=== PATIENT | male | born 1955 | race Caucasian/White ===

== ENCOUNTER 2016-08-26 09:37 | Day surgery (SDC) | payer OTHER ==
[2016-08-23 16:22] VITALS: BMI 30.1
[~2016-08-26 09:37] MED LIST: LACTATED RINGERS 1,000 ML IV SCH; LIDOCAINE 1% 20 ML VIAL (10MG/ML) FOR IV START INTRADERMA PRN
[2016-08-26 09:56] VITALS: RESP 16; TEMP 98.1
[2016-08-26] MEDS ORDERED: LIDOCAINE 1% 20 ML VIAL (10MG/ML) FOR IV START INTRADERMA ONE (10:02)
[2016-08-26] MEDS ORDERED: fentaNYL (PF) 50 MCG/ML 2 ML AMP ONE (10:48)
[2016-08-26] MEDS ORDERED: PROPOFOL 10 MG/ML 20 ML VIAL IV ONE (10:48)
[2016-08-26] MEDS ORDERED: MIDAZOLAM 2 MG/2 ML VIAL ONE (10:48)
[2016-08-26] MEDS ORDERED: LACTATED RINGERS 1,000 ML IV ONE (11:04)
--- NOTE | 2016-08-26 11:08 | P.PCN ---
Date of Procedure: 08/26/16 Procedure(s) Performed: BRIEF HISTORY: Patient is a 61-year-old pleasant white male scheduled for an elective colonoscopy as a part of evaluation of lower abdominal pain and change in bowel habits for the last 1 month duration. He denies any rectal bleeding. No family history of colon cancer. PROCEDURE PERFORMED: Colonoscopy and polypectomy. PREOPERATIVE DIAGNOSIS: Lower abdominal pain and change in bowel habits snare. IV sedation per Anesthesia. PROCEDURE: After informed consent was obtained, the patient, was brought into the endoscopy unit. IV conscious sedation was administered by Anesthesia under continuous monitoring. External rectal examination was normal. Initially the Olympus CF-160 flexible video colonoscope was then inserted in the rectum, gradually advanced into the cecum without any difficulty. Careful examination was performed as the scope was gradually being withdrawn. Ileocecal valve and the appendiceal orifice were visualized and appeared normal. Prep was fair. There was a 1 cm polyp noted in the base of the cecum that was removed by snare polypectomy. Mucosa of the cecum, ascending colon, transverse colon, descending colon, sigmoid colon, and rectum appeared normal. Retroflexion was performed in the rectum and no lesions were seen. The patient tolerated the procedure well. IMPRESSION: 1 cm cecal polyp status post polypectomy Rest of the colon appeared normal RECOMMENDATIONS: Findings of this examination were discussed with the patient as well as his family. He was advised to have a repeat surveillance colonoscopy in 5 years from now based the biopsy results.
[2016-08-26 11:18] VITALS: BP 117/70; PULSE 58
== END 2016-08-26 11:37 | disposition home or self-care (01) ==
LOC: ORWHC2ENDO 09:37
PROVIDERS: ATTEND Internal Medicine Gastroenterology
DX: D12.0 Benign neoplasm of cecum (principal); R10.30 Lower abdominal pain, unspecified; R19.4 Change in bowel habit; I10 Essential (primary) hypertension; Z79.899 Other long term (current) drug therapy; Z87.891 Personal history of nicotine dependence
CPT/HCPCS: 88305; 45385; J2250; J3010; J2704; 99153

== ENCOUNTER → 2016-09-24 | Outpatient (CLI) | payer OTHER ==
[2016-09-24 09:35] LABS: EKG EKG PERFORMED
--- NOTE | 2016-09-24 09:43 | XR ---
EXAMINATION TYPE: XR chest 2V DATE OF EXAM: 09/24/2016 9:37 AM COMPARISON: Prior chest x-ray June 20, 2013. HISTORY: Presurgical study. TECHNIQUE: Frontal and lateral views of the chest are obtained. FINDINGS: There is no focal air space opacity, pleural effusion, or pneumothorax seen. The cardiac silhouette size is within normal limits. The osseous structures are intact. IMPRESSION: No acute cardiopulmonary process. No significant change from prior.
[2016-09-24 10:26] LABS: Basophils # (A) 0.1 k/uL (0-0.2); Basophils % (A) 1 %; CH 27.4; CHCM 31.2; Eosinophils # (A) 0.4 k/uL (0-0.7); Eosinophils % (A) 5 %; HCT 50.8 % (39.0-53.0); HDW 2.45; HGB 15.5 gm/dL (13.0-17.5); Hypochromasia Slight; Luc # (Auto) 0.37; Luc % (Auto) 5; Lymphocytes # (A) 2.3 k/uL (1.0-4.8); Lymphocytes % (A) 27 %; MCH 26.9 pg (25.0-35.0); MCHC 30.5 g/dL (31.0-37.0); MCV 88.3 fL (80.0-100.0); Mean Platelet Volume 6.6; Monocytes # (A) 0.6 k/uL (0-1.0); Monocytes % (A) 7 %; Neutrophils # (A) 4.6 k/uL (1.3-7.7); Neutrophils % (A) 56 %; RBC 5.75 m/uL (4.30-5.90); RDW 14.2 % (11.5-15.5); WBC 8.3 k/uL (3.8-10.6); WBC (Perox) 8.26
[2016-09-24 10:36] LABS: Anion Gap 12 mmol/L; Carbon Dioxide 27 mmol/L (22-30); Chloride 104 mmol/L (98-107); Potassium 4.4 mmol/L (3.5-5.1); Sodium 143 mmol/L (137-145)
[2016-09-24 10:38] LABS: INR 1.1 (<1.1); Partial Thromboplastin Time 25.9 sec (22.0-30.0); Prothrombin Time 10.9 sec (9.0-12.0)
== END | disposition home or self-care (01) ==
LOC: LABPAT 09:13
PROVIDERS: ATTEND Surgery
DX: Z01.810 Encounter for preprocedural cardiovascular examination (principal); Z01.812 Encounter for preprocedural laboratory examination; K46.9 Unspecified abdominal hernia without obstruction or gangrene
CPT/HCPCS: 71020; 80051; 85025; 85610; 85730; 93005

== ENCOUNTER 2016-09-30 11:02 | Day surgery (SDC) | payer OTHER ==
[2016-09-28 10:27] VITALS: BMI 31.7
[~2016-09-30 11:02] MED LIST changes: +DEXAMETHASONE SOD PHOSPHATE 10 MG/ML 1 ML VIAL IV ONE; +HEPARIN SODIUM,PORCINE 5,000 UNIT/ML 1 ML VIAL SQ ONE; -LACTATED RINGERS 1,000 ML IV SCH; -LIDOCAINE 1% 20 ML VIAL (10MG/ML) FOR IV START INTRADERMA PRN; +MIDAZOLAM 2 MG/2 ML VIAL IV PRN; +ONDANSETRON 4 MG/2 ML VIAL IVP ONE; +SCOPOLAMINE 1.5MG/72HR PATCH TRANSDERM ONE; +ceFAZolin 2 GM in SODIUM CHLORIDE 0.9% 100 ML IVPB ONE
[2016-09-30] MEDS: LIDOCAINE 1% 20 ML VIAL (10MG/ML) FOR IV START INTRADERMA PRN ×2 (11:26→11:27)
[2016-09-30] MEDS: LACTATED RINGERS 1,000 ML IV SCH ×3 (11:27→20:29)
[2016-09-30] MEDS ORDERED: LABETALOL SYRINGE 5 MG/ML IVP ONE (11:45)
[2016-09-30] MEDS ORDERED: LIDOCAINE 1% INJ 10MG/ML (20 ML MDV) ONE (11:54)
[2016-09-30] MEDS ORDERED: SUCCINYLCHOLINE CHLORIDE 100 MG/5 ML SYR IV ONE (11:54)
[2016-09-30] MEDS ORDERED: fentaNYL (PF) 50 MCG/ML 2 ML AMP ONE (11:54)
[2016-09-30] MEDS ORDERED: NEOSTIGMINE 1 MG/ML 10 ML VIAL ONE (11:54)
[2016-09-30] MEDS ORDERED: GLYCOPYRROLATE 0.2 MG/ML 2 ML VIAL ONE (11:54)
[2016-09-30] MEDS ORDERED: MIDAZOLAM 2 MG/2 ML VIAL ONE (11:54)
[2016-09-30] MEDS ORDERED: PHENYLEPHRINE-0.9% NACL SYG 1 MG/10 ML SYRINGE ONE (11:54)
[2016-09-30] MEDS ORDERED: ROCURONIUM BROMIDE 10 MG/ML 10 ML VIAL IV ONE (11:54)
[2016-09-30] MEDS ORDERED: PROPOFOL 10 MG/ML 20 ML VIAL IV ONE (11:54)
[2016-09-30] MEDS ORDERED: BUPIVACAIN-EPI 0.25%-1:200,000 30 ML VIAL SQ ONE (12:30)
--- NOTE | 2016-09-30 14:14 | P.OP ---
Date of Procedure: 09/30/16 Preoperative Diagnosis: right inguinal hernia Postoperative Diagnosis: Right indirect initial incarcerated inguinal hernia containing epiploic appendage Procedure(s) Performed: Robot assisted laparoscopic inguinal hernia repair with mesh Incidental repair of umbilical hernia at the 12 mm port site Anesthesia: SHAISTA Surgeon: Myra Matta Estimated Blood Loss (ml): 11 Pathology: other Condition: stable Disposition: PACU Indications for Procedure: pain in the LLQ with swelling Operative Findings: Incarcerated left inguinal hernia containing incarcerated epiploic appendage. Large lipoma of the cord left sided Right side looked good with mesh showing but covered by peritoneum at the right internal ring Small umbilical hernia at the site of the 12 mm port site Description of Procedure: Informed consent was obtained patient and then The patient was brought to the operating room and placed in supine position. General anesthesia with endotracheal intubation was performed as per anesthesia team. A ramirez catheter was inserted under sterile aseptic precautions. Chlorhexidine was used to prep the skin followed by application of sterile drapes . He was placed in the lithotomy positionA timeout was performed to verify correct patient, correct procedure and correct side. Patient was confirmed to receive perioperative IV antibiotics, subcutaneous heparin 5000 units and bilateral SCDs were placed. The left upper quadrant point was identified and a stab incision was made. Veress needle was introduced and placement was confirmed with the help of the drop test. The abdomen was then insufflated to 15 mmHg. Once that was done 5 mm port was introduced into the left upper quadrant using the Optiview technique after which a 12 mm port was placed in the supraumbilical position and a 8 mm port in the right lower quadrant and then after that the left-sided 5 mm port was replaced with a robot 8 mm port under direct vision. The robot was then docked with the central camera port and the 2 side working ports. The scope was introduced and the abdomen down through the 12 mm port site. Cardiere and scissor i was introduced in the abdominal cavity after which the median umbilical fold was retracted laterally towards the left side a small incision was made at the junction of the umbilical fold and the peritoneum and carried all the way laterally thus creating a small plane in the preperitoneal space. This did this was further dissected with the help of blunt dissection using gentle stroking maneuvers all the way down to Jez ligament medially and laterally we went inferior exposing the vessels inferiorly. The vas was identified and the hernia sac was teased off of the spermatic cord gently with the help of blunt dissection and once it was taken off a large lipoma of the cord was also removed. After this a 10 x 15 Bard Pro silk screener mesh was introduced in the abdominal cavity with the lower part above the level of the peritoneal fold was then unfolded so that it covered all the orifices and covered the Jez's ligament medially once again pain positioned perfectly to seal was applied to the inferior edge of the mesh as well as around the Jez's ligament after which the peritoneal flaps were closed with the help of running 0 V lock suture once that was done procedure was completed all incisions and camera was removed and a laparoscope was introduced and the 12 mm port site was through the umbilical hernia site was closed with 0 PDS and a running 0 Vicryl suture on a UR 6 needle ; after which gas was turned off abdomen was thoroughly desufflated skins was closed with the help of 4-0 Monocryl and Dermabond. Ramirez catheter was removed patient was extubated and taken to recovery room in stable condition patient tolerated the procedure well there were no complications
[2016-09-30 14:24] VITALS: TEMP 96.8
[2016-09-30] MEDS: HYDROmorphone 1 MG/ML 1 ML SYRINGE IVP PRN ×2 (14:27→14:54)
[2016-09-30] MEDS ORDERED: HYDROcodone/APAP 5-325MG 1 EACH TAB PO ONE (16:17)
[2016-09-30] MEDS ORDERED: LACTATED RINGERS 1,000 ML IV ONE ×3 (16:20)
[2016-09-30] MEDS ORDERED: HYDROcodone/APAP 5-325MG 1 EACH TAB PO STA (16:50)
[2016-09-30 17:03] VITALS: RESP 18
[2016-09-30 19:28] VITALS: BP 127/81; PULSE 95
== END 2016-09-30 20:35 | disposition home or self-care (01) ==
LOC: OR 11:02
PROVIDERS: ATTEND Surgery
DX: K40.30 Unilateral inguinal hernia, with obstruction, without gangrene, not specified as recurrent (principal); D17.6 Benign lipomatous neoplasm of spermatic cord; I10 Essential (primary) hypertension; M19.90 Unspecified osteoarthritis, unspecified site; Z87.891 Personal history of nicotine dependence; Z79.899 Other long term (current) drug therapy; Z79.1 Long term (current) use of non-steroidal anti-inflammatories (NSAID); K42.9 Umbilical hernia without obstruction or gangrene
CPT/HCPCS: 49650; 49652; S2900; 88304

== ENCOUNTER → 2017-07-07 | Outpatient (CLI) | payer OTHER ==
--- NOTE | 2017-07-07 17:33 | CT ---
EXAMINATION TYPE: CT abdomen pelvis w con DATE OF EXAM: 07/07/2017 COMPARISON: NONE HISTORY: Abdominal pain x1 week and hematuria. CT DLP: 1696 mGycm Automated exposure control for dose reduction was used. TECHNIQUE: Helical acquisition of images was performed from the lung bases through the pelvis. CONTRAST: Performed with Oral Contrast and with IV Contrast, patient injected with 100 mL of Omnipaque 300. FINDINGS: Lung bases are clear of consolidation. There is no pleural effusion. Liver shows no focal defect. Spleen pancreas gallbladder appear normal. Bile ducts are not dilated. There is no adrenal mass. Kidneys show satisfactory contrast opacification. There is no hydronephrosi s. There is no retroperitoneal adenopathy. There is no ascites. Bladder distends smoothly. There are prostatic calcifications. I see no intestinal wall thickening. There are no dilated loops. Appendix is not seen. There is no si gn of appendicitis. There are a few small lymph nodes medial to the cecum. I see no bony destructive process. CONCLUSION: Negative CT scan of the abdomen and pelvis. I do not see a cause for hematuria.
== END | disposition home or self-care (01) ==
LOC: RADCTMAIN 14:48
PROVIDERS: ATTEND Family Medicine
DX: R31.9 Hematuria, unspecified (principal); R10.84 Generalized abdominal pain
CPT/HCPCS: 74177; Q9967

== ENCOUNTER → 2018-02-10 | Outpatient (CLI) | payer OTHER ==
--- NOTE | 2018-02-10 12:27 | ECHOS ---
STRESS ECHOCARDIOGRAM DATE OF SERVICE: 02/10/2018 INDICATIONS: Hypertension MEDICATIONS: BASELINE HEART RATE: 75 BASELINE BLOOD PRESSURE: 122/69 MAXIMUM HEART RATE: 138 MAXIMUM BLOOD PRESSURE: 202/70 85% MPHR: 135 100% MPHR: 154 METS: 11.1 MAXIMUM STAGE REACHED: IV TOTAL EXERCISE TIME: 9-1/2 minutes CLINICAL INFORMATION: Baseline EKG revealed normal sinus rhythm with poor R-wave progression over precordial leads. Patient walked on standard Johnny protocol for 9-1/2 minutes achieved a maximal heart rate of 138 beats per minute which is more than 85% of predicted maximal. Rare isolated PVCs were noted. He did not have any angina. EKG did not reveal any ST- segment changes to indicate ischemia. By EKG criteria, this is a negative stress test with good exercise capacity with isolated PVCs and slightly hypertensive response with a peak pressure of 202/70 and a resting pressure of 122/69. Ventricular ectopy disappeared at peak exercise and there were upsloping nonspecific ST-segment changes. This is a negative stress test with good exercise capacity. Baseline echo images revealed normal wall motion and wall thickening of all segments. At peak exercise, there was good augmentation of left ventricular wall motion and wall thickening of all segments suggesting that there is no evidence of stress-induced ischemia on this study. FINAL IMPRESSION: 1. Good exercise capacity with a negative stress test by EKG criteria. Isolated PVCs were noted and there was somewhat of a hypertensive response to exercise. 2. Normal stress echocardiogram. MMODL / IJN: [id number] /
== END | disposition home or self-care (01) ==
LOC: RADNMMAIN 09:51
PROVIDERS: ATTEND Family Medicine
DX: I49.3 Ventricular premature depolarization (principal)
CPT/HCPCS: 93351

== ENCOUNTER → 2018-04-18 | Outpatient (CLI) | payer OTHER ==
[2018-04-18 13:50] LABS: Blood Urea Nitrogen 20 mg/dL (9-20)
--- NOTE | 2018-04-18 14:47 | CT ---
EXAMINATION TYPE: CT chest w con DATE OF EXAM: 04/18/2018 COMPARISON: Prior chest x-ray September 24, 2016 HISTORY: Upper chest pain and pressure. CT DLP: 739 mGycm. Automated Exposure Control for Dose Reduction was Utilized. TECHNIQUE: CT scan of the thorax is performed following with IV Contrast, patient injected with 100 mL of Isovue 300. FINDINGS: LUNGS: The lungs are grossly clear, there is no concerning parenchymal mass or nodule identified. T here is no pleural effusion or pneumothorax seen. The tracheobronchial tree is patent. MEDIASTINUM: There are no greater than 1 cm hilar or mediastinal lymph nodes. There are prominent b ut subcentimeter bilateral hilar lymph nodes. No renomegaly or pericardial effusion is seen. Coronar y artery calcification is present which is noted marker for coronary artery disease OTHER: Liver is diffusely low dense consistent with fatty infiltration. There is mild multilevel spur ring in the spine. IMPRESSION: No suspicious acute pulmonary process.
== END | disposition home or self-care (01) ==
LOC: RADCTMAIN 13:09
DX: R07.89 Other chest pain (principal)
CPT/HCPCS: 82565; 84520; 71260; 36415; Q9967

== ENCOUNTER → 2018-07-27 | Outpatient (CLI) | payer OTHER ==
--- NOTE | 2018-07-27 12:07 | CONS ---
CONSULTATION DATE OF SERVICE: 07/27/2018 A 63-year-old gentleman who has been evaluated in the [facility] for possible obstructive sleep apnea-hypopnea syndrome. HISTORY OF PRESENT ILLNESS/SLEEP WAKE EVALUATION: Patient usual sleep schedule from 11 p.m. until 7:30 a.m. Sometimes he has problem with falling asleep. Has TV set in bedroom. He sleeps on the side position by himself. According to his brother, he has snoring. Patient awakenings from sleep several times with nocturia. In the morning he may feel tiredness and sleepiness, but they usually does not take any naps with 2 glasses of caffeinated beverages. [place] Sleepiness Scale is 0. PAST MEDICAL HISTORY: Positive for hypertension, episodes of chest pain. MEDICATIONS: Atenolol, hydrochlorothiazide. PAST SURGICAL HISTORY: Status post abdominal hernia repair. SOCIAL HISTORY: Negative for smoking. Occasionally using marijuana: Alcohol consumption occasional. REVIEW OF SYSTEMS: Awakenings from sleep, sometimes tiredness and sleepiness during the day. FAMILY HISTORY: Hypertension, arthritis. PHYSICAL EXAM: A 63-year-old gentleman without distress. BP 146/82, HR 54, RR 16, height 5 foot 7 inches, 1/2, weight 222 pounds. Body mass index 34.2, temperature 97.6, oxygen saturation at room air 96%. OROPHARYNX: Moderately low position of soft palate, very wide pillars, small oropharyngeal air space, wide neck, 18-1/2 inches in circumference. ABDOMEN: Obese. Neck Supple, no JVD. Thyroid is not palpable. LUNGS Clear to percussion and to auscultation. Good air exchange. No wheezing or rhonchi. HEART S1, S2 regular. No murmurs, gallops, or rubs. EXTREMITIES No clubbing or cyanosis. ACTUARIAL CLERK Awake, alert, and oriented X3. Cranial nerves 2 to 7 intact. There is no fasciculation or atrophy. noted. No focal deficits observed. IMPRESSION: 1. Snoring, awakenings from sleep with nocturia, wide neck, small oropharyngeal air space, obesity, obstructive sleep apnea-hypopnea syndrome. 2. Obesity, body mass index 34.2. 3. Hypertension. 4. Episodes of chest pain. PLAN: 1. Polysomnography for evaluation of patient's breathing during sleep. 2. CPAP/BiPAP titration if sleep study confirms obstructive sleep apnea-hypopnea syndrome. 3. Preferable position during sleep on the side. 4. No driving if patient feels any sleepiness. 5. I will see patient for follow up visit to explain results of testing and following plan. Thank you very much for referring this patient for consultation. Sincerely, Brandan Euceda MD, PhD, FAASM Diplomat of [place] [employer] [employer] Assistant Principal of [facility] [place] MMODL / ANTOINETTEN: [id number] /
== END | disposition home or self-care (01) ==
LOC: SLEEP 10:51
PROVIDERS: ATTEND Internal Medicine
DX: G47.33 Obstructive sleep apnea (adult) (pediatric) (principal); E66.9 Obesity, unspecified; I10 Essential (primary) hypertension; R07.9 Chest pain, unspecified; Z68.34 Body mass index [BMI] 34.0-34.9, adult; Z79.899 Other long term (current) drug therapy
CPT/HCPCS: 99211

== ENCOUNTER 2018-11-06 09:37 | Observation (INO) | payer OTHER ==
[2018-11-06] MEDS ORDERED: ASPIRIN 81 MG PO STA (10:08)
[2018-11-06] MEDS ORDERED: NITROGLYCERIN OINT 1 INCH/GM PACKET TOPICAL STA (10:08)
--- NOTE | 2018-11-06 10:11 | ED ---
General Adult HPI - General Chief complaint: Chest Pain Stated complaint: Chest soreness Time Seen by Provider: 11/06/18 09:45 Source: patient, RN notes reviewed Mode of arrival: ambulatory Limitations: no limitations - History of Present Illness Initial comments: Patient is a pleasant 63-year-old male presenting to the emergency Department with chest discomfort. Symptoms have been present for over a week now. Patient describes discomfort as soreness or any ache. Discomfort is left breast region. No radiation. Patient does have mild associated exertional dyspnea. Discomfort also get somewhat worse with exertion. The symptoms do not get worse with mild exertion and needs to be more significant. Patient did have somewhat similar symptoms a year or so ago however that was related with shoulder problems. No associated diaphoresis or nausea. - Related Data Home Medications Medication Instructions Recorded Confirmed Ascorbic Acid [Vitamin C] 500 mg PO DAILY 08/23/16 11/06/18 Atenolol [Tenormin] 25 mg PO QAM 08/23/16 11/06/18 Cholecalciferol [Vitamin D3] 1,000 unit PO DAILY 08/23/16 11/06/18 Cider Vinegar [Apple Cider Vinegar] 600 mg PO BID 08/23/16 11/06/18 Krill Oil 500 mg PO DAILY 08/23/16 11/06/18 Vit C/E/Zn/Coppr/Lutein/Zeaxan 1 tab PO DAILY 08/23/16 11/06/18 [Preservision Areds 2 Softgel] Vitamin E (Dl,Tocopheryl Acet) 400 unit PO DAILY 08/23/16 11/06/18 [Vitamin E] Papaya [Papaya Enzyme] 1 tab PO TID 09/28/16 11/06/18 Hydrochlorothiazide [Hydrodiuril] 12.5 mg PO DAILY 11/06/18 11/06/18 Allergies Allergy/AdvReac Type Severity Reaction Status Date / Time No Known Allergies Allergy Verified 11/06/18 09:41 Review of Systems ROS Statement: Those systems with pertinent positive or pertinent negative responses have been documented in the HPI. ROS Other: All systems not noted in ROS Statement are negative. Constitutional: Denies: fever Eyes: Denies: eye pain ENT: Denies: ear pain Respiratory: Reports: as per HPI Cardiovascular: Reports: chest pain Endocrine: Denies: fatigue Gastrointestinal: Denies: abdominal pain Genitourinary: Denies: dysuria Musculoskeletal: Denies: back pain Skin: Denies: rash Neurological: Denies: weakness Past Medical History Past Medical History: Hypertension History of Any Multi-Drug Resistant Organisms: None Reported Past Surgical History: Appendectomy, Hernia Repair Past Anesthesia/Blood Transfusion Reactions: No Reported Reaction Past Psychological History: No Psychological Hx Reported Smoking Status: Current every day smoker Past Alcohol Use History: Occasional Past Drug Use History: Marijuana - Past Family History Mother Family Medical History: No Reported History General Exam Limitations: no limitations General appearance: alert, in no apparent distress Head exam: Present: atraumatic Eye exam: Present: normal appearance, PERRL ENT exam: Present: normal oropharynx Neck exam: Present: normal inspection Respiratory exam: Present: normal lung sounds bilaterally. Absent: chest wall tenderness Cardiovascular Exam: Present: regular rate, normal rhythm Expanded Peripheral pulses: 2+: Radial (R), Radial (L), Posterior Tibialis (R), Posterior Tibialis (L) GI/Abdominal exam: Present: soft. Absent: tenderness Extremities exam: Present: normal inspection. Absent: pedal edema, calf tenderness Back exam: Present: normal inspection Neurological exam: Present: alert Psychiatric exam: Present: normal affect, normal mood Skin exam: Present: normal color Course Vital Signs 11/06/18 11/06/18 09:38 09:41 Temperature 98.3 F Pulse Rate 64 Pulse Rate [ 69 Supervisor Electronic Testing ] Respiratory 18 Rate Blood Pressure 162/95 O2 Sat by Pulse 98 Oximetry EKG Findings - EKG Comments: EKG Findings:: Sinus rhythm at 64. VA 170. QRS 72. QT 398. QTC 410. Normal axis. Normal QRS. No acute ST change. Medical Decision Making - Medical Decision Making Patient reevaluated and updated. Case was discussed in detail with Dr. Bourgeois, who will admit covering for this [facility]. - Lab Data Result diagrams: 11/06/18 10:10 11/06/18 10:10 Lab Results 11/06/18 11/06/18 11/06/18 Range/Units 10:10 10:10 10:10 WBC 7.6 (3.8-10.6) k/uL RBC 5.53 (4.30-5.90) m/uL Hgb 15.1 (13.0-17.5) gm/dL Hct 46.2 (39.0-53.0) % MCV 83.6 (80.0-100.0) fL MCH 27.2 (25.0-35.0) pg MCHC 32.6 (31.0-37.0) g/dL RDW 14.1 (11.5-15.5) % Plt Count 256 (150-450) k/uL Neutrophils % 51 % Lymphocytes % 30 % Monocytes % 10 % Eosinophils % 5 % Basophils % 1 % Neutrophils # 3.9 (1.3-7.7) k/uL Lymphocytes # 2.2 (1.0-4.8) k/uL Monocytes # 0.7 (0-1.0) k/uL Eosinophils # 0.4 (0-0.7) k/uL Basophils # 0.1 (0-0.2) k/uL Sodium 139 (137-145) mmol/L Potassium 4.2 (3.5-5.1) mmol/L Chloride 107 (98-107) mmol/L Carbon Dioxide 25 (22-30) mmol/L Anion Gap 7 mmol/L BUN 17 (9-20) mg/dL Creatinine 0.84 (0.66-1.25) mg/dL Est GFR (CKD-EPI)AfAm >90 (>60 ml/min/1.73 sqM) Est GFR (CKD-EPI)NonAf >90 (>60 ml/min/1.73 sqM) Glucose 107 H (74-99) mg/dL Calcium 9.2 (8.4-10.2) mg/dL Magnesium 2.0 (1.6-2.3) mg/dL Total Bilirubin 0.6 (0.2-1.3) mg/dL AST 19 (17-59) U/L ALT 37 (21-72) U/L Alkaline Phosphatase 66 (38-126) U/L Troponin I (0.000-0.034) ng/mL NT-Pro-B Natriuret Pep 97 pg/mL Total Protein 7.1 (6.3-8.2) g/dL Albumin 4.0 (3.5-5.0) g/dL 11/06/18 Range/Units 10:10 WBC (3.8-10.6) k/uL RBC (4.30-5.90) m/uL Hgb (13.0-17.5) gm/dL Hct (39.0-53.0) % MCV (80.0-100.0) fL MCH (25.0-35.0) pg MCHC (31.0-37.0) g/dL RDW (11.5-15.5) % Plt Count (150-450) k/uL Neutrophils % % Lymphocytes % % Monocytes % % Eosinophils % % Basophils % % Neutrophils # (1.3-7.7) k/uL Lymphocytes # (1.0-4.8) k/uL Monocytes # (0-1.0) k/uL Eosinophils # (0-0.7) k/uL Basophils # (0-0.2) k/uL Sodium (137-145) mmol/L Potassium (3.5-5.1) mmol/L Chloride (98-107) mmol/L Carbon Dioxide (22-30) mmol/L Anion Gap mmol/L BUN (9-20) mg/dL Creatinine (0.66-1.25) mg/dL Est GFR (CKD-EPI)AfAm (>60 ml/min/1.73 sqM) Est GFR (CKD-EPI)NonAf (>60 ml/min/1.73 sqM) Glucose (74-99) mg/dL Calcium (8.4-10.2) mg/dL Magnesium (1.6-2.3) mg/dL Total Bilirubin (0.2-1.3) mg/dL AST (17-59) U/L ALT (21-72) U/L Alkaline Phosphatase (38-126) U/L Troponin I <0.012 (0.000-0.034) ng/mL NT-Pro-B Natriuret Pep pg/mL Total Protein (6.3-8.2) g/dL Albumin (3.5-5.0) g/dL - Radiology Data Radiology results: image reviewed (Chest x-ray shows no acute process.) Disposition Clinical Impression: Chest pain Disposition: ADMITTED IP TO THIS HOSP Is patient prescribed a controlled substance at d/c from ED?: No Referrals: [facility],Clinic [Primary Care Provider] - 1-2 days Decision Time: 11:54
[2018-11-06 10:40] LABS: Basophils # (A) 0.1 k/uL (0-0.2); Basophils % (A) 1 %; Eosinophils # (A) 0.4 k/uL (0-0.7); Eosinophils % (A) 5 %; HCT 46.2 % (39.0-53.0); HGB 15.1 gm/dL (13.0-17.5); Lymphocytes # (A) 2.2 k/uL (1.0-4.8); Lymphocytes % (A) 30 %; MCH 27.2 pg (25.0-35.0); MCHC 32.6 g/dL (31.0-37.0); MCV 83.6 fL (80.0-100.0); Mean Platelet Volume 6.7; Monocytes # (A) 0.7 k/uL (0-1.0); Monocytes % (A) 10 %; Neutrophils # (A) 3.9 k/uL (1.3-7.7); Neutrophils % (A) 51 %; Platelet Count 256 k/uL (150-450); RBC 5.53 m/uL (4.30-5.90); RDW 14.1 % (11.5-15.5); WBC 7.6 k/uL (3.8-10.6)
[2018-11-06 10:52] LABS: ALT 37 U/L (21-72); AST 19 U/L (17-59); Alkaline Phosphatase 66 U/L (38-126); Anion Gap 7 mmol/L; Blood Urea Nitrogen 17 mg/dL (9-20); Calcium 9.2 mg/dL (8.4-10.2); Carbon Dioxide 25 mmol/L (22-30); Chloride 107 mmol/L (98-107); Glucose 107 mg/dL (74-99); Potassium 4.2 mmol/L (3.5-5.1); Sodium 139 mmol/L (137-145); Total Bilirubin 0.6 mg/dL (0.2-1.3); Total Protein 7.1 g/dL (6.3-8.2)
--- NOTE | 2018-11-06 10:58 | XR ---
EXAMINATION TYPE: XR chest 2V DATE OF EXAM: 11/06/2018 COMPARISON: CT chest April 18, 2018. Two-view chest x-ray September 24, 2016. HISTORY: Chest pain today. TECHNIQUE: Frontal and lateral views of the chest are obtained. FINDINGS: There is left basilar linear scarring. There is no suspicious focal air space opacity, ple ural effusion, or pneumothorax seen. The cardiac silhouette size is within normal limits. The osse ous structures are intact. IMPRESSION: Patchy left basilar linear atelectasis and/or scarring.
[2018-11-06] MEDS ORDERED: NITROGLYCERIN SL TABS 0.4 MG TAB SUBLINGUAL PRN (11:54)
[2018-11-06 12:15] LABS: D-Dimer 0.32 mg/L FEU (<0.60); Prothrombin Time 10.3 sec (9.0-12.0)
--- NOTE | 2018-11-06 14:51 | P.CRDCN ---
History of Present Illness History of present illness: This is a pleasant 63-year-old male past medical history significant for hypertension and chronic daily marijuana use. He denies history of coronary artery disease. He states he underwent cardiac catheterization approximately 10 years ago which was unremarkable and he received no stents. 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 This pain came at the end of his night when he sat down after finishing his work. It radiated across the chest and in the midsternal region was associated with mild shortness of breath. There is no radiation down the arm, into the neck and to the back or the jaw. He denies associated palpitations, nausea, vomiting or diaphoresis. He states ever since that event he has noticed increased fatigue. 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 Similar to how he felt the previous week. He was again mildly short of breath. The pain ultimately subsided on its own through the entire weekend he felt increasingly fatigued which is very abnormal for him. At the time of my exam he is seen resting comfortably in bed in no acute distress. He denies any symptoms active chest discomfort. He also denies any further shortness of breath. EKG reveals sinus mechanism with no acute ST or T wave abnormalities noted. Chest x-ray reveals patchy left basilar linear atelectasis and/or scarring. No pleural effusion or heart failure noted. Laboratory data reviewed, cardiac enzymes negative 1, d-dimer 0.32. Current cardiac medications include atenolol 25 mg daily and hydrochlorothiazide 12.5 mg daily. At the time of my exam: CONSTITUTIONAL: Denies fever. Denies chills. EYES: Denies blurred vision. Denies vision changes. Denies eye pain. EARS, NOSE, MOUTH & THROAT: Denies headache. Denies sore throat. Denies ear pain. CARDIOVASCULAR: Denies chest pain. Denies shortness of breath. Denies orthopnea. Denies PND. Denies palpitations. RESPIRATORY: Denies cough. GASTROINTESTINAL: Denies abdominal pain. Denies diarrhea. Denies constipation. Denies nausea. Denies vomiting. MUSCULOSKELETAL: Denies myalgias. INTEGUMENTARY: Denies pruitis. Denies rash. NEUROLOGIC: Denies numbness. Denies tingling. Denies weakness. PSYCHIATRIC: Denies anxiety. Denies depression. ENDOCRINE: Denies fatigue. Denies weight change. Denies polydipsia. Denies polyurina. GENITOURINARY: Denies burning, hematuria or urgency with micturation. HEMATOLOGIC: Denies history of anemia. Denies bleeding. Blood pressure 143/81 heart rate 76 afebrile maintaining oxygen saturation on room air GENERAL: This is a 63-year-old male in no apparent distress at the time of my examination. HEENT: Head is atraumatic, normocephalic. Pupils are equal, round. Sclerae anicteric. Conjunctivae are clear. Mucous membranes of the mouth are moist. Neck is supple. There is no jugular venous distention. No carotid bruit is heard. LUNGS: Clear to auscultation no wheezes, rales or rhonchi. No chest wall tenderness is noted on palpation or with deep breathing. HEART: Regular rate and rhythm without murmurs, rubs or gallops. S1 and S2 heard. ABDOMEN: Soft, nontender. Bowel sounds are heard. No organomegaly noted. EXTREMITIES: No evidence of peripheral edema and no calf tenderness noted. VASCULAR: Radial and dorsalis pedis pulses palpated, no evidence of clubbing. NEUROLOGIC: Patient is awake, alert and oriented x3. ASSESSMENT Chest pain, suggestive of unstable angina Hypertension Daily marijuana use PLAN Continue to obtain serial enzymes to rule out an acute coronary event. Obtain 2-D echocardiogram and Doppler study to assess cardiac structure and function. Nothing by mouth after midnight tonight for possible cardiac catheterization in the morning. Further recommendations to follow based on clinical course. Thank he kindly for this consultation. Nurse Practitioner note has been reviewed, I agree with a documented findings and plan of care. Patient was seen and examined. Past Medical History Past Medical History: Hypertension History of Any Multi-Drug Resistant Organisms: None Reported Past Surgical History: Appendectomy, Heart Catheterization, Hernia Repair Past Anesthesia/Blood Transfusion Reactions: No Reported Reaction Smoking Status: Former smoker - Past Family History Mother Family Medical History: No Reported History Medications and Allergies Home Medications Medication Instructions Recorded Confirmed Type Ascorbic Acid [Vitamin C] 500 mg PO DAILY 08/23/16 11/06/18 History Atenolol [Tenormin] 25 mg PO QAM 08/23/16 11/06/18 History Cholecalciferol [Vitamin D3] 1,000 unit PO DAILY 08/23/16 11/06/18 History Cider Vinegar [Apple Cider Vinegar] 600 mg PO BID 08/23/16 11/06/18 History Krill Oil 500 mg PO DAILY 08/23/16 11/06/18 History Vit C/E/Zn/Coppr/Lutein/Zeaxan 1 tab PO DAILY 08/23/16 11/06/18 History [Preservision Areds 2 Softgel] Vitamin E (Dl,Tocopheryl Acet) 400 unit PO DAILY 08/23/16 11/06/18 History [Vitamin E] Papaya [Papaya Enzyme] 1 tab PO TID 09/28/16 11/06/18 History Hydrochlorothiazide [Hydrodiuril] 12.5 mg PO DAILY 11/06/18 11/06/18 History Allergies Allergy/AdvReac Type Severity Reaction Status Date / Time No Known Allergies Allergy Verified 11/06/18 09:41 Physical Exam Vitals: Vital Signs Temp Pulse Pulse Pulse Resp BP BP 11/06/18 13:35 11/06/18 13:05 97.8 F 76 18 143/81 11/06/18 12:24 65 16 115/73 11/06/18 09:41 69 11/06/18 09:38 98.3 F 64 18 162/95 Pulse Ox 11/06/18 13:35 98 11/06/18 13:05 97 11/06/18 12:24 97 11/06/18 09:41 11/06/18 09:38 98 Intake and Output 11/05/18 11/06/18 11/06/18 22:59 06:59 14:59 Other: Voiding Method Toilet # Voids 1 Weight 99.79 kg Results 11/06/18 10:10 11/06/18 10:10 Cardiac Enzymes 11/06/18 11/06/18 Range/Units 10:10 10:10 AST 19 (17-59) U/L Troponin I <0.012 (0.000-0.034) ng/mL Coagulation 11/06/18 Range/Units 10:58 PT 10.3 (9.0-12.0) sec APTT 26.0 (22.0-30.0) sec CBC 11/06/18 Range/Units 10:10 WBC 7.6 (3.8-10.6) k/uL RBC 5.53 (4.30-5.90) m/uL Hgb 15.1 (13.0-17.5) gm/dL Hct 46.2 (39.0-53.0) % Plt Count 256 (150-450) k/uL Comprehensive Metabolic Panel 11/06/18 Range/Units 10:10 Sodium 139 (137-145) mmol/L Potassium 4.2 (3.5-5.1) mmol/L Chloride 107 (98-107) mmol/L Carbon Dioxide 25 (22-30) mmol/L BUN 17 (9-20) mg/dL Creatinine 0.84 (0.66-1.25) mg/dL Glucose 107 H (74-99) mg/dL Calcium 9.2 (8.4-10.2) mg/dL AST 19 (17-59) U/L ALT 37 (21-72) U/L Alkaline Phosphatase 66 (38-126) U/L Total Protein 7.1 (6.3-8.2) g/dL Albumin 4.0 (3.5-5.0) g/dL Current Medications Generic Name Dose Route Start Last Admin Trade Name Freq PRN Reason Stop Dose Admin Aspirin 325 mg 11/07/18 09:00 Aspirin PO DAILY [facility]1983 Hydrochlorothiazide 12.5 mg 11/07/18 09:00 Hydrodiuril PO DAILY DAVID Nitroglycerin 0.4 mg 11/06/18 11:54 Nitrostat SUBLINGUAL Q5M PRN Chest Pain Sodium Chloride 10 ml 11/06/18 21:00 Saline Flush IV BID DAVID Intake and Output 11/05/18 11/06/18 11/06/18 22:59 06:59 14:59 Other: Voiding Method Toilet # Voids 1 Weight 99.79 kg Patient Weight 11/07/18 06:59 Weight 99.79 kg 11/06/18 10:10 11/06/18 10:10
[2018-11-06] MEDS: METOPROLOL TARTRATE 25 MG TAB PO SCH (20:06)
--- NOTE | 2018-11-07 00:01 | P.HPIM ---
History of Present Illness H&P Date: 11/06/18 Chief Complaint: Chest pain Patient is a 61-year-old male with a known history of hypertension, daily marijuana use and previous history of cardiac catheterization about 10 years ago came to ER with complaints of chest pressure especially in the left retrosternal area. Patient has been stressful recently and could not sleep last 2-3 nights. Patient has been having constant dull pain. Patient had this pain last night and since then his been having dull pain. Patient went to his work today and again felt worsening pain after finishing his work. Patient felt extremely tired. Associated with some shortness of breath. No nausea vomiting or diaphoresis. Denied any radiation of the pain to the arm neck or jaw or back. Denied any fever or chills. No recent illnesses. EKG showed sinus rhythm with no ST-T wave changes. Chest x-ray showed patchy left basilar linear atelectasis and/or scarring. No pleural effusion or heart failure noted. Troponin 1 negative D-dimer is not elevated BNP 97 Review of Systems Constitutional: Patient denies any fever or chills . No generalized weakness or weight loss. Abdomen: Patient denied nausea vomiting and diarrhea and abdominal pain. Cardiovascular: Patient denies any chest pain or short of breath no palpitations. Respiratory: patient denied any cough is from production. No shortness of breath Neurologic: Patient denied any numbness or tingling headache. Musculoskeletal: Patient denies any complaints of joint swelling or deformity. Skin: Negative Psychiatric: Negative Endocrine: No heat or cold intolerance. No recent weight gain. Genitourinary: No dysuria or hematuria. All other 14 point ROS negative except the above Past Medical History Past Medical History: Hypertension History of Any Multi-Drug Resistant Organisms: None Reported Past Surgical History: Appendectomy, Heart Catheterization, Hernia Repair Past Anesthesia/Blood Transfusion Reactions: No Reported Reaction Smoking Status: Former smoker - Past Family History Mother Family Medical History: No Reported History Medications and Allergies Home Medications Medication Instructions Recorded Confirmed Type Ascorbic Acid [Vitamin C] 500 mg PO DAILY 08/23/16 11/06/18 History Atenolol [Tenormin] 25 mg PO QAM 08/23/16 11/06/18 History Cholecalciferol [Vitamin D3] 1,000 unit PO DAILY 08/23/16 11/06/18 History Cider Vinegar [Apple Cider Vinegar] 600 mg PO BID 08/23/16 11/06/18 History Krill Oil 500 mg PO DAILY 08/23/16 11/06/18 History Vit C/E/Zn/Coppr/Lutein/Zeaxan 1 tab PO DAILY 08/23/16 11/06/18 History [Preservision Areds 2 Softgel] Vitamin E (Dl,Tocopheryl Acet) 400 unit PO DAILY 08/23/16 11/06/18 History [Vitamin E] Papaya [Papaya Enzyme] 1 tab PO TID 09/28/16 11/06/18 History Hydrochlorothiazide [Hydrodiuril] 12.5 mg PO DAILY 11/06/18 11/06/18 History Allergies Allergy/AdvReac Type Severity Reaction Status Date / Time No Known Allergies Allergy Verified 11/06/18 09:41 Physical Exam Vitals: Vital Signs Temp Pulse Pulse Pulse Resp BP BP 11/06/18 15:36 98.2 F 74 18 129/70 11/06/18 13:35 11/06/18 13:05 97.8 F 76 18 143/81 11/06/18 12:24 65 16 115/73 11/06/18 09:41 69 11/06/18 09:38 98.3 F 64 18 162/95 Pulse Ox 11/06/18 15:36 97 11/06/18 13:35 98 11/06/18 13:05 97 11/06/18 12:24 97 11/06/18 09:41 11/06/18 09:38 98 Intake and Output 11/06/18 11/06/18 11/06/18 06:59 14:59 22:59 Other: Voiding Method Toilet # Voids 1 Weight 99.79 kg PHYSICAL EXAMINATION: Patient is lying in the bed comfortably, no acute distress, awake alert and oriented.. HEENT: Normocephalic. Neck is supple. Pupils reactive. Nostrils clear. Oral cavity is moist. Ears reveal no drainage. Neck reveals no JVD, carotid bruits, or thyromegaly. CHEST EXAMINATION: Trachea is central. Symmetrical expansion. Lung schneider clear to auscultation and percussion. CARDIAC: Normal S1, S2 with no gallops. No murmurs ABDOMEN: Soft. Bowel sounds normal. No organomegaly. No abdominal bruits. Extremities: reveal no edema. No clubbing or cyanosis Neurologically awake, alert, oriented x3 with well-coordinated movements. No focal deficits noted Skin: No rash or skin lesions. Psychiatric: Coperative. Nonsuicidal Musculoskeletal: No joint swelling or deformity. Normal range of motion. Results CBC & Chem 7: 11/06/18 10:10 11/06/18 10:10 Labs: Abnormal Lab Results - Last 24 Hours (Table) 11/06/18 Range/Units 10:10 Glucose 107 H (74-99) mg/dL Thrombosis Risk Factor Assmnt - DVT/VTE Prophylaxis DVT/VTE Prophylaxis: Pharmacologic Prophylaxis ordered - Choose All That Apply Any of the Below Risk Factors Present?: No Other Risk Factors: Yes Each Risk Factor Represents 2 Points: Age 61-74 years Thrombosis Risk Factor Assessment Total Risk Factor Score: 2 Thrombosis Risk Factor Assessment Level: Low Risk Assessment and Plan Assessment: Atypical chest pain. Possible Unstable angina Hypertension uncontrolled Marijuana use an daily basis Obesity with BMI 31.6 Nicotine addiction Plan: Patient will be continued on telemetry monitoring. Serial EKG and troponin 3 negative. 2-D echocardiogram was ordered. Follow-up lipid panel. Cardiology is planning for cardiac catheterization tomorrow morning. Further recommendations based on the clinical course. Time with Patient: Greater than 30
[2018-11-07 01:58] LABS: Cholesterol 199 mg/dL (<200); HDL Cholesterol 38 mg/dL (40-60); LDL Cholesterol,Calculated 124 mg/dL (0-99); Triglycerides 183 mg/dL (<150)
[2018-11-07] MEDS ORDERED: PANTOPRAZOLE 40 MG TABLET PO SCH (07:30)
[2018-11-07 07:43] VITALS: RESP 18
[2018-11-07] MEDS ORDERED: CHOLECALCIFEROL 1,000 UNIT TAB PO SCH (09:00)
[2018-11-07] MEDS ORDERED: HYDROCHLOROTHIAZIDE 12.5 MG CAP PO SCH (09:00)
[2018-11-07] MEDS ORDERED: ASPIRIN 325 MG TAB PO SCH (09:00)
[2018-11-07] MEDS ORDERED: ASCORBIC ACID 500 MG TAB PO SCH (09:00)
[2018-11-07] MEDS: METOPROLOL TARTRATE 25 MG TAB PO SCH (11:08)
--- NOTE | 2018-11-07 11:09 | P.PN ---
Subjective This is a pleasant 63-year-old male past medical history significant for hypertension and chronic daily marijuana use. He denies history of coronary artery disease. He states he underwent cardiac catheterization approximately 10 years ago which was unremarkable and he received no stents. He is seen and examined resting comfortably in bed in no acute distress. He denies any further symptoms of chest discomfort or shortness of breath since coming to the hospital. Cardiac enzymes are negative x3. No changes noted on repeat EKG and t elemetry tracings are unremarkable. Blood pressure 129/83 heart rate 63 afebrile and maintaining oxygen saturations on room air. GENERAL: This is a 63-year-old male in no apparent distress at the time of my examination. HEENT: Head is atraumatic, normocephalic. Pupils are equal, round. Sclerae anicteric. Conjunctivae are clear. Mucous membranes of the mouth are moist. Neck is supple. There is no jugular venous distention. No carotid bruit is heard. LUNGS: Clear to auscultation no wheezes, rales or rhonchi. No chest wall tenderness is noted on palpation or with deep breathing. HEART: Regular rate and rhythm without murmurs, rubs or gallops. S1 and S2 heard. EXTREMITIES: No evidence of peripheral edema and no calf tenderness noted. ASSESSMENT Chest pain, suggestive of unstable angina Hypertension Daily marijuana use PLAN An acute coronary event has been ruled out. Initiate on atorvastatin 40 mg daily for lowering of LDL cholesterol. His ASCVD risk is intermediate at 14.2%. No further symptoms of chest discomfort. Perform stress echocardiogram to assess for stress induced ischemia. If stress test is normal he is stable from a cardiac perspective. Nurse Practitioner note has been reviewed, I agree with a documented findings and plan of care. Patient was seen and examined. Objective - Vital Signs Vital signs: Vital Signs Temp 97.6 F 11/07/18 07:42 Pulse 63 11/07/18 07:42 Resp 18 11/07/18 07:42 BP 129/83 11/07/18 07:42 Pulse Ox 97 11/07/18 07:42 Intake & Output 11/06/18 11/07/18 11/07/18 18:59 06:59 18:59 Intake Total 350 Balance 350 Weight 99.79 kg Intake: Oral 350 Other: Voiding Method Toilet Toilet # Voids 1 1 - Labs CBC & Chem 7: 11/06/18 10:10 11/06/18 10:10 Labs: Abnormal Lab Results - Last 24 Hours (Table) 11/06/18 Range/Units 10:10 Triglycerides 183 H (<150) mg/dL LDL Cholesterol, Calc 124 H (0-99) mg/dL HDL Cholesterol 38 L (40-60) mg/dL
--- NOTE | 2018-11-07 11:36 | P.STRESS ---
- Stress Test Note Stress Test Results/Findings: Exam Performed: stress echo exercise Exam Date: 11/07/18 Reason for Exam: CP Height: 5 ft 10 in Weight: 99.79 kg Protocol: STRESS ECHO Stage: 3 Duration of Exercise: 9:30 Resting Heart Rate: 69 Resting Blood Pressure: 137/81 Maximum Achieved Heart Rate: 147 Maximum Achieved Blood Pressure: 203/101 85% PMHR: 134 100% PMHR: 158 METS: 11.1 Technologist Comment: Stress Test Results/Findings: This is a 63-year-old gentleman with history of hypertension, family history of ischemic heart disease who was admitted to the hospital with chest pain. His EKGs and cardiac enzymes are negative. Stress data: Baseline blood pressure is 137/81 with pulse rate of 69. Baseline EKG showed sinus rhythm, normal VT interval, QRS duration without any significant ST-T wave normalities. Patient walked on the Johnny protocol for 9 minutes and 30 seconds achieving a maximum heart rate of 147 with a blood pressure 198/82. EKGs taken during and after the exercise did not reveal any significant changes to suggest ischemia. Patient had occasional PVCs. Echo data: Baseline echo images show normal wall motion and thickening. Exercise echo images showed augmentation of the wall motion and thickening in all the segments. Final impression: #1. Negative stress test #2. Negative stress echo #3. Occ asional PVCs noted during exercise.
[2018-11-07 12:31] VITALS: BP 148/86; PULSE 76; TEMP 98.2
[2018-11-07] MEDS: ATORVASTATIN 40 MG TAB PO SCH ×2 (12:44→13:02)
--- NOTE | 2018-11-07 13:19 | ECHOS ---
Stress Test Results/Findings: Exam Performed: stress echo exercise Exam Date: 11/07/18 Reason for Exam: CP Height: 5 ft 10 in Weight: 99.79 kg Protocol: STRESS ECHO Stage: 3 Duration of Exercise: 9:30 Resting Heart Rate: 69 Resting Blood Pressure: 137/81 Maximum Achieved Heart Rate: 147 Maximum Achieved Blood Pressure: 203/101 85% PMHR: 134 100% PMHR: 158 METS: 11.1 Technologist Comment: Stress Test Results/Findings: This is a 63-year-old gentleman with history of hypertension, family history of ischemic heart disease who was admitted to the hospital with chest pain. His EKGs and cardiac enzymes are negative. Stress data: Baseline blood pressure is 137/81 with pulse rate of 69. Baseline EKG showed sinus rhythm, normal UT interval, QRS duration without any significant ST-T wave normalities. Patient walked on the Johnny protocol for 9 minutes and 30 seconds achieving a maximum heart rate of 147 with a blood pressure 198/82. EKGs taken during and after the exercise did not reveal any significant changes to suggest ischemia. Patient had occasional PVCs. Echo data: Baseline echo images show normal wall motion and thickening. Exercise echo images showed augmentation of the wall motion and thickening in all the segments. Final impression: #1. Negative stress test #2. Negative stress echo #3. Occasional PVCs noted during exercise. MTDD
--- NOTE | 2018-11-07 13:30 | ECHOF ---
Referral Reason:cp MEASUREMENTS -------- HEIGHT: 177.8 cm WEIGHT: 99.8 kg BP: 143/81 RVIDd: 3.0 cm (< 3.3) IVSd: 1.0 cm (0.6 - 1.1) LVIDd: 3.4 cm (3.9 - 5.3) LVPWd: 1.0 cm (0.6 - 1.1) IVSs: 1.3 cm LVIDs: 2.2 cm LVPWs: 1.2 cm LAESV Index (A-L): 13.35 ml/m Ao Diam: 2.5 cm (2.0 - 3.7) AV Cusp: 1.4 cm (1.5 - 2.6) LA Diam: 3.0 cm (2.7 - 3.8) EPSS: 0.4 cm MV E Dov: 0.53 m/s MV DecT: 326 ms MV A Dov: 0.68 m/s MV E/A Ratio: 0.79 RAP: 5.00 mmHg RVSP: 9.02 mmHg MV EF SLOPE: 61.66 mm/s (70 - 150) MV EXCURSION: 1.18 cm (> 18.000) FINDINGS -------- Sinus rhythm. This was a technically adequate study. The left ventricular size is normal. Left ventricular wall thickness is normal. Overall left vent ricular systolic function is normal with, an EF between 55 - 60 %. The right ventricle is normal in size and function. Normal LA size by volume 22+/-6 ml/m2. RA appears enlarged. Aortic valve is trileaflet and is mildly thickened. There is no evidence of aortic regurgitation. There is no evidence of aortic stenosis. The mitral valve leaflets are mildly thickened. There is trace to mild mitral regurgitation. Trace tricuspid regurgitation present. Right ventricular systolic pressure is normal at < 35 mmHg. There is no evidence of pulmonary hypertension. Trace/mild (physiologic) pulmonic regurgitation. The aortic root size is normal. Normal inferior vena cava with normal inspiratory collapse consistent with estimated right atrial pre ssure of 5 mmHg. There is no pericardial effusion. CONCLUSIONS -------- 1. Sinus rhythm. 2. This was a technically adequate study. 3. The left ventricular size is normal. 4. Left ventricular wall thickness is normal. 5. Overall left ventricular systolic function is normal with, an EF between 55 - 60 %. 6. Normal LA size by volume 22+/-6 ml/m2. 7. RA appears enlarged. 8. Aortic valve is trileaflet and is mildly thickened. 9. The mitral valve leaflets are mildly thickened. 10. There is trace to mild mitral regurgitation. 11. Trace tricuspid regurgitation present. 12. Right ventricular systolic pressure is normal at < 35 mmHg. 13. There is no evidence of pulmonary hypertension. 14. Trace/mild (physiologic) pulmonic regurgitation. 15. The aortic root size is normal. 16. There is no pericardial effusion. INSTRUCTIONAL SUPPORT SERVICES DIRECTOR: Rolando Smith RDCS
== END 2018-11-07 15:58 | disposition home or self-care (01) ==
LOC: EC 09:37 → 1SOBS 11:55
PROVIDERS: ADMIT Internal Medicine; ATTEND Internal Medicine
DX: R07.89 Other chest pain (principal); I10 Essential (primary) hypertension; R53.83 Other fatigue; R06.02 Shortness of breath; F17.200 Nicotine dependence, unspecified, uncomplicated; F12.90 Cannabis use, unspecified, uncomplicated; Z68.31 Body mass index [BMI] 31.0-31.9, adult; E66.9 Obesity, unspecified; Z79.899 Other long term (current) drug therapy; Z90.49 Acquired absence of other specified parts of digestive tract
CPT/HCPCS: 99285; 36415; 94760; 93005; 93306; 93351; 85379; 83880; 80061; 80053; 83735; 84484; 85025; 85610; 85730; 71046; G0378 ×2

== ENCOUNTER → 2019-06-28 | Outpatient (CLI) | payer OTHER ==
--- NOTE | 2019-06-29 10:11 | CT ---
EXAMINATION TYPE: CT chest wo/w con DATE OF EXAM: 06/28/2019 COMPARISON: Chest x-ray dated 11/06/[address] dated 04/18/2018 HISTORY: Chronic chest pain x [address] DLP: 1544 mGycm. Automated Exposure Control for Dose Reduction was Utilized. TECHNIQUE: CT scan of the thorax is performed following with IV Contrast, patient injected with 100 mL of Isovue 300. FINDINGS: LUNGS: The lungs are grossly clear, there is no concerning parenchymal mass or nodule identified. T here is no pleural effusion or pneumothorax seen. The tracheobronchial tree is patent. MEDIASTINUM: There are no greater than 1 cm hilar or mediastinal lymph nodes. No pericardial effusi on is seen. Moderate coronary calcifications in the left anterior descending coronary artery. No asc ending thoracic aortic aneurysm as the aortic root is within normal limits measuring 3.3 cm and ascen ding thoracic aorta is 3.0 cm. No aneurysmal dilatation of the descending thoracic aorta nor aortic a rch. OTHER: Hepatic parenchyma is diffusely hypoattenuated in comparison to that of the spleen, most commo nly seen in hepatic steatosis. This finding limits evaluation for hepatic masses. No gross evidence o f hepatic mass is seen. No intrahepatic biliary ductal dilatation. No cholelithiasis. Rudimentary rib s at T12 are incidentally seen. IMPRESSION: 1. No CT findings to correspond to the patient's chest pain. No suspicious pulmonary masses however n o focal consolidation, and no aneurysmal dilatation of the thoracic aorta. 2. Moderate coronary and left anterior descending artery, marker for coronary disease.
== END | disposition home or self-care (01) ==
LOC: RADCTMAIN 16:39
DX: I25.10 Atherosclerotic heart disease of native coronary artery without angina pectoris (principal)
CPT/HCPCS: 71270; Q9967

== ENCOUNTER 2021-06-10 10:26 | Observation (INO) | payer OTHER, MEDICARE ==
--- NOTE | 2021-06-10 11:23 | XR ---
EXAMINATION TYPE: XR chest 2V DATE OF EXAM: 06/10/2021 COMPARISON: 11/06/2018 INDICATION: Chest pain TECHNIQUE: Frontal and lateral views of the chest are obtained. FINDINGS: The heart size is normal. The pulmonary vasculature is normal. The lungs are clear. IMPRESSION: 1. No acute pulmonary process.
--- NOTE | 2021-06-10 12:18 | ED ---
Chest Pain HPI - General Chief Complaint: Chest Pain Stated Complaint: Chest Pain Time Seen by Provider: 06/10/21 10:26 Source: patient, family, RN notes reviewed Mode of arrival: wheelchair Limitations: no limitations - History of Present Illness Initial Comments: 66-year-old male brought in by EMS with complaints of chest pain left-sided nonradiating it feels sore with some mild shortness of breath weakness no sweats. Patient also states he's been having exertional dyspnea and gets fatigued easily over the past several months. He tries to do a project or some heavy activity any of breath. MD Complaint: chest pain - Related Data Home Medications Medication Instructions Recorded Confirmed Ascorbic Acid [Vitamin C] 500 mg PO BID 08/23/16 06/10/21 Vit C/E/Zn/Coppr/Lutein/Zeaxan 1 tab PO BID 08/23/16 06/10/21 [Preservision Areds 2 Softgel] Papaya [Papaya Enzyme] 1 tab PO DAILY 09/28/16 06/10/21 Aloe Vera 2000mg 2,000 mg PO BID 06/10/21 06/10/21 Aspirin EC [Ecotrin Low Dose] 81 mg PO DAILY 06/10/21 06/10/21 Cholecalciferol (Vitamin D3) 125 mcg PO BID 06/10/21 06/10/21 [Vitamin D3 (125 MCG = 5,000 IU)] Cyanocobalamin (Vitamin B-12) 5,000 mcg PO DAILY 06/10/21 06/10/21 [Vitamin B-12] Liver Tonic 200 mg PO TID 06/10/21 06/10/21 Milk Thistle 150 mg PO DAILY 06/10/21 06/10/21 [place] Oil 15 ml PO DAILY 06/10/21 06/10/21 Turmeric Root Extract [Turmeric] 500 mg PO BID 06/10/21 06/10/21 Ubidecarenone [Co Q-10] 200 mg PO DAILY 06/10/21 06/10/21 Vinegar 15 ml PO DAILY 06/10/21 06/10/21 Zinc 50 mg PO DAILY 06/10/21 06/10/21 hydroCHLOROthiazide [Hydrodiuril] 25 mg PO DAILY 06/10/21 06/10/21 Previous Rx's Medication Instructions Recorded Metoprolol Tartrate [Lopressor] 25 mg PO BID #60 tab 11/07/18 Allergies Allergy/AdvReac Type Severity Reaction Status Date / Time No Known Allergies Allergy Verified 06/10/21 11:43 Review of Systems ROS Statement: Those systems with pertinent positive or pertinent negative responses have been documented in the HPI. ROS Other: All systems not noted in ROS Statement are negative. EKG Findings - EKG Results: EKG: interpreted by ERMD, sinus rhythm (Normal sinus rhythm a 65. Interval 180 QRS duration 74 QT since QTC 4-[address]-T wave changes) Past Medical History Past Medical History: Hypertension History of Any Multi-Drug Resistant Organisms: None Reported Past Surgical History: Appendectomy, Heart Catheterization, Hernia Repair Past Anesthesia/Blood Transfusion Reactions: No Reported Reaction Past Psychological History: No Psychological Hx Reported Smoking Status: Never smoker Past Alcohol Use History: Occasional Past Drug Use History: Marijuana - Past Family History Mother Family Medical History: No Reported History General Exam - General Exam Comments Initial Comments: This a well-developed well-nourished awake alert oriented 3 male Limitations: no limitations General appearance: alert, in no apparent distress Head exam: Present: atraumatic, normocephalic, normal inspection Eye exam: Present: normal appearance, PERRL, EOMI. Absent: scleral icterus, conjunctival injection, periorbital swelling ENT exam: Present: normal exam, mucous membranes moist Neck exam: Present: normal inspection. Absent: tenderness, meningismus, lymphadenopathy Respiratory exam: Present: normal lung sounds bilaterally. Absent: respiratory distress, wheezes, rales, rhonchi, stridor Cardiovascular Exam: Present: regular rate, normal rhythm, normal heart sounds. Absent: systolic murmur, diastolic murmur, rubs, gallop, clicks GI/Abdominal exam: Present: soft, normal bowel sounds. Absent: distended, tenderness, guarding, rebound, rigid Extremities exam: Present: normal inspection, full ROM, normal capillary refill. Absent: tenderness, pedal edema, joint swelling, calf tenderness Back exam: Present: normal inspection Neurological exam: Present: alert, oriented X3, CN II-XII intact Psychiatric exam: Present: normal affect, normal mood Skin exam: Present: warm, dry, intact, normal color. Absent: rash Course Vital Signs 06/10/21 10:29 Temperature 98.4 F Pulse Rate 65 Respiratory 18 Rate Blood Pressure 131/75 O2 Sat by Pulse 97 Oximetry Chest Pain MDM - MDM Imaging reviewed no acute findings I did discuss the findings with the patient currently is pain-free however the presentation is consistent with acute coronary syndrome/unstable angina. He is agreed to be admitted I did discuss case with Dr. Bourgeois. Disposition Clinical Impression: Chest pain, Unstable angina pectoris Disposition: ADMITTED IP TO THIS HOSP Condition: Fair Referrals: [facility],Clinic [Primary Care Provider] - 1-2 days
[2021-06-10 12:25] LABS: ALT 44 U/L (4-49); AST 29 U/L (17-59); African American GFR (CKD) >90 (>60 ml/min/1.73 sqM); Albumin 4.1 g/dL (3.5-5.0); Alkaline Phosphatase 65 U/L (38-126); Anion Gap 9 mmol/L; Blood Urea Nitrogen 18 mg/dL (9-20); Calcium 9.6 mg/dL (8.4-10.2); Carbon Dioxide 23 mmol/L (22-30); Chloride 104 mmol/L (98-107); Glucose 176 mg/dL (74-99); Lipase 47 U/L (23-300); Magnesium 2.1 mg/dL (1.6-2.3); Non-African American GFR(CKD) >90 (>60 ml/min/1.73 sqM); Sodium 136 mmol/L (137-145); Total Bilirubin 0.8 mg/dL (0.2-1.3); Total Protein 7.3 g/dL (6.3-8.2)
[2021-06-10 12:39] LABS: Partial Thromboplastin Time 24.1 sec (22.0-30.0); Prothrombin Time 10.5 sec (9.0-12.0)
[2021-06-10 14:04] LABS: Basophils # (A) 0.1 k/uL (0-0.2); Basophils % (A) 1 %; Eosinophils # (A) 0.2 k/uL (0-0.7); Eosinophils % (A) 2 %; HCT 48.1 % (39.0-53.0); HGB 15.7 gm/dL (13.0-17.5); Lymphocytes # (A) 1.8 k/uL (1.0-4.8); Lymphocytes % (A) 22 %; MCH 29.2 pg (25.0-35.0); MCHC 32.7 g/dL (31.0-37.0); MCV 89.2 fL (80.0-100.0); Mean Platelet Volume 9.9; Monocytes # (A) 0.6 k/uL (0-1.0); Monocytes % (A) 7 %; Neutrophils # (A) 5.3 k/uL (1.3-7.7); Neutrophils % (A) 65 %; Platelet Count 208 k/uL (150-450); RBC 5.39 m/uL (4.30-5.90); RDW 14.4 % (11.5-15.5)
[2021-06-10 14:06] LABS: WBC 8.2 k/uL (3.8-10.6)
[2021-06-10] MEDS ORDERED: NITROGLYCERIN SL TABS 0.4 MG TAB SUBLINGUAL PRN (14:09)
[2021-06-10] MEDS ORDERED: HEPARIN SODIUM 1,000 UN/ML (10ML VL) IV ONE (14:09)
[2021-06-10] MEDS ORDERED: HEPARIN SOD,PORK IN 0.45% NACL 25,000 UNIT in 0.45% NACL 1 250ML.BAG IV SCH (14:15)
[2021-06-10] MEDS ORDERED: TONIC PO SCH (16:00)
[2021-06-10] MEDS: SODIUM CHLORIDE 0.9% 1,000 ML IV SCH (16:13)
[2021-06-10] MEDS: METOPROLOL TARTRATE 25 MG TAB PO SCH (19:43)
[2021-06-10] MEDS: CHOLECALCIFEROL 25 MCG (1000 IU) TABLET PO SCH (19:43)
[2021-06-10] MEDS: VIT A,C & E-LUTEIN-MINERALS 1 EACH TAB PO SCH (19:44)
[2021-06-10] MEDS: ASCORBIC ACID 500 MG TAB PO SCH (19:44)
[2021-06-10] MEDS: NITROGLYCERIN OINT 1 INCH/GM PACKET TOPICAL SCH (19:45)
[2021-06-10] MEDS ORDERED: NON FORMULARY DRUG (Turmeric Root Extract [Turmeric] 500 MG Capsule) PO SCH (21:00)
[2021-06-10] MEDS ORDERED: ALOE VERA PO SCH (21:00)
[2021-06-11] MEDS ORDERED: HEPARIN SODIUM 1,000 UN/ML (10ML VL) IV PRN (00:14)
--- NOTE | 2021-06-11 00:37 | P.HPIM ---
History of Present Illness H&P Date: 06/10/21 Chief Complaint: Chest pain Patient is a 66-year-old male with a known history of hypertension, marijuana use and prior history of smoking and also previous history of cardiac catheterization presents to ER with complaints of chest pain and exertional dyspnea. Patient states that she has been having on and off exertional dyspnea for the past 1/2-week and chest pains lasting about few minutes. He also feels very weak and fatigued and lack of energy. Chest pain is associated e with shortness of breath. No radiation of the pain. Left retrosternal 5 out of 10 in severity.. Any palpitations or leg swelling.. Patient called his primary care physician who recommended him go to ER for evaluation. Patient denies any complaints of nausea or vomiting or diaphoresis. No recent illnesses or sick contacts. Chest x-ray showed no acute cardiopulmonary process. EKG showed normal sinus rhythm Laboratory showed D-dimer 0.34, sodium 136 potassium 4.0 chloride 104 BUN 18 and creatinine 0.83 Troponin x3 - and proBNP is not elevated at 36. Coronavirus PCR not detected WBC 8.2 hemoglobin 15.7 and platelets 208 Review of Systems Constitutional: Patient denies any fever or chills . generalized weakness and fatique. no weight loss. Abdomen: Patient denied nausea vomiting and diarrhea and abdominal pain. Cardiovascular: Patient does have intermittent chest pain and exertional dyspnea. No leg swelling no palpitations.. Respiratory: patient denied any cough or sputum production. No shortness of breath Neurologic: Patient denied any numbness or tingling headache. Musculoskeletal: Patient denies any complaints of joint swelling or deformity. Skin: Negative Psychiatric: Negative Endocrine: No heat or cold intolerance. No recent weight gain. Genitourinary: No dysuria or hematuria. All other 14 point ROS negative except the above Past Medical History Past Medical History: Hypertension History of Any Multi-Drug Resistant Organisms: None Reported Past Surgical History: Appendectomy, Heart Catheterization, Hernia Repair Past Anesthesia/Blood Transfusion Reactions: No Reported Reaction Past Psychological History: No Psychological Hx Reported Smoking Status: Never smoker Past Alcohol Use History: Occasional Additional Past Alcohol Use History / Comment(s): smoked cigars [id number] Past Drug Use History: Marijuana - Past Family History Mother Family Medical History: No Reported History Medications and Allergies Home Medications Medication Instructions Recorded Confirmed Type Ascorbic Acid [Vitamin C] 500 mg PO BID 08/23/16 06/10/21 History Vit C/E/Zn/Coppr/Lutein/Zeaxan 1 tab PO BID 08/23/16 06/10/21 History [Preservision Areds 2 Softgel] Papaya [Papaya Enzyme] 1 tab PO DAILY 09/28/16 06/10/21 History Metoprolol Tartrate [Lopressor] 25 mg PO BID #60 tab 11/07/18 06/10/21 Rx Aloe Vera 2000mg 2,000 mg PO BID 06/10/21 06/10/21 History Aspirin EC [Ecotrin Low Dose] 81 mg PO DAILY 06/10/21 06/10/21 History Cholecalciferol (Vitamin D3) 125 mcg PO BID 06/10/21 06/10/21 History [Vitamin D3 (125 MCG = 5,000 IU)] Cyanocobalamin (Vitamin B-12) 5,000 mcg PO DAILY 06/10/21 06/10/21 History [Vitamin B-12] Liver Tonic 200 mg PO TID 06/10/21 06/10/21 History Milk Thistle 150 mg PO DAILY 06/10/21 06/10/21 History [place] Oil 15 ml PO DAILY 06/10/21 06/10/21 History Turmeric Root Extract [Turmeric] 500 mg PO BID 06/10/21 06/10/21 History Ubidecarenone [Co Q-10] 200 mg PO DAILY 06/10/21 06/10/21 History Vinegar 15 ml PO DAILY 06/10/21 06/10/21 History Zinc 50 mg PO DAILY 06/10/21 06/10/21 History hydroCHLOROthiazide [Hydrodiuril] 25 mg PO DAILY 06/10/21 06/10/21 History Allergies Allergy/AdvReac Type Severity Reaction Status Date / Time No Known Allergies Allergy Verified 06/10/21 11:43 Physical Exam Vitals: Vital Signs Temp Pulse Pulse Resp BP BP Pulse Ox 06/10/21 19:47 78 18 06/10/21 19:38 97.9 F 78 18 158/89 96 06/10/21 15:20 62 18 129/81 96 06/10/21 10:29 98.4 F 65 18 131/75 97 Intake and Output 06/10/21 06/10/21 06/10/21 06:59 14:59 22:59 Other: # Voids 2 Weight 102.058 kg 102.058 kg PHYSICAL EXAMINATION: Patient is lying in the bed comfortably, no acute distress, awake alert and oriented.. HEENT: Normocephalic. Neck is supple. Pupils reactive. Nostrils clear. Oral cavity is moist. Neck reveals no JVD, carotid bruits, or thyromegaly. CHEST EXAMINATION: Trachea is central. Symmetrical expansion. Lung schneider clear to auscultation and percussion. CARDIAC: Normal S1, S2 with no gallops. No murmurs ABDOMEN: Soft. Bowel sounds normal. No organomegaly. No abdominal bruits. Extremities: reveal no edema. No clubbing or cyanosis Neurologically awake, alert, oriented x3 with well-coordinated movements. No focal deficits noted Skin: No rash or skin lesions. Psychiatric: Cooperative. Nonsuicidal Musculoskeletal: No joint swelling or deformity. Normal range of motion. Results CBC & Chem 7: 06/10/21 11:40 06/10/21 11:40 Labs: Abnormal Lab Results - Last 24 Hours (Table) 06/10/21 Range/Units 11:40 Sodium 136 L (137-145) mmol/L Glucose 176 H (74-99) mg/dL Thrombosis Risk Factor Assmnt - DVT/VTE Prophylaxis DVT/VTE Prophylaxis: Pharmacologic Prophylaxis ordered - Choose All That Apply Any of the Below Risk Factors Present?: Yes Each Factor Represents 1 point: Obesity (BMI >25) Other Risk Factors: Yes Each Risk Factor Represents 2 Points: Age 61-74 years Other congenital or acquired thrombophilia - If yes, enter type in comment: No Thrombosis Risk Factor Assessment Total Risk Factor Score: 3 Thrombosis Risk Factor Assessment Level: Moderate Risk Assessment and Plan Assessment: Unstable angina Chest pain and exertional dyspnea 1 x1/2-week. Hypertension Previous history of smoking DVT prophylaxis. Plan: Patient declined on telemetry monitoring. Serial EKG and troponin x3. Patient was started on heparin drip and cardiology was consulted. 2D echocardiogram was ordered. Continue to follow closely.
[2021-06-11] MEDS: NITROGLYCERIN OINT 1 INCH/GM PACKET TOPICAL SCH ×3 (00:45→11:07)
[2021-06-11 08:08] VITALS: BP 125/80; PULSE 63; RESP 16; TEMP 97.7
[2021-06-11] MEDS: CHOLECALCIFEROL 25 MCG (1000 IU) TABLET PO SCH (08:13)
[2021-06-11] MEDS: VIT A,C & E-LUTEIN-MINERALS 1 EACH TAB PO SCH (08:14)
[2021-06-11] MEDS: ASCORBIC ACID 500 MG TAB PO SCH (08:14)
[2021-06-11] MEDS ORDERED: VINEGAR PO SCH (09:00)
[2021-06-11] MEDS ORDERED: NON FORMULARY DRUG (Ubidecarenone [Co Q-10] 100 MG Capsule) PO SCH (09:00)
[2021-06-11] MEDS ORDERED: NON FORMULARY DRUG (Milk Thistle [Milk Thistle] 150 MG Capsule) PO SCH (09:00)
[2021-06-11] MEDS ORDERED: ZINC SULFATE 220 MG CAP PO SCH (09:00)
[2021-06-11] MEDS ORDERED: ASPIRIN 325 MG TAB PO SCH (09:00)
[2021-06-11] MEDS ORDERED: ASPIRIN 81 MG PO SCH (09:00)
[2021-06-11] MEDS ORDERED: NON FORMULARY DRUG (Papaya [Papaya Enzyme] 1 EACH Tablet) PO SCH (09:00)
[2021-06-11] MEDS ORDERED: hydroCHLOROthiazide 25 MG TAB PO SCH (09:00)
[2021-06-11] MEDS ORDERED: OLIVE OIL PO SCH (09:00)
--- NOTE | 2021-06-11 09:40 | P.CRDCN ---
History of Present Illness History of present illness: HISTORY OF PRESENTING ILLNESS This is a pleasant 66-year-old male past medical history significant for hypertension, marijuana use, statin intolerance. 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 We have been asked to see in consultation for chest pain. 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 He began to have chest pain in the center of his chest, with some numbness to his left arm. Had associated mild shortness of breath. He describes the pain as a sore. His pain continued all day. He states he called his doctor and was told to go to the emergency department. He denies any associated nausea, diaphoresis, lightheadedness, dizziness. He denies any symptoms of orthopnea or PND. He states he did have a cardiac catheterization at [facility] in 2008, was told it was normal and no stents were placed. He denies any tobacco use. He occasionally uses marijuana night. He denies any alcohol use. He denies any history of NM, coronary artery disease, diabetes, stroke. He denies any family history of coronary artery disease. He states he used to be on statin therapy however he could not tolerate it. DIAGNOSTICS EKG reveals sinus rhythm, heart rate 65, no significant ST-T wave abnormalities. Telemetry tracings indicate sinus rhythm, heart rate 50s to 80s Most recent echocardiogram 2019 revealed EF 5560 percent, trace to mild mitral regurgitation, trace tricuspid regurgitation. Stress Echo test in 2019 was negative Chest xray no acute cardiopulmonary process Laboratory reviewed, CBC unremarkable, d-dimer negative, sodium 136, potassium 4.0, BUN 18, serum creatinine 0.8, troponin negative 3, pro-BNP 36, magnesium 2.1. Current cardiac medications include hydrochlorothiazide 20 mg daily, metoprolol tartrate 25 mg twice a day, aspirin 81 mg daily, zinc, vinegar, oil, tumeric root, papaya, vitamin c, aloe vera, liver tonic, vitamin B12, vitamin D 3, CoQ- 10. REVIEW OF SYSTEMS At the time of my exam: CONSTITUTIONAL: Denies fever or chills. CARDIOVASCULAR:+ chest pain,+ shortness of breath, Denies orthopnea, PND or palpitations. RESPIRATORY: Denies cough. GASTROINTESTINAL: Denies abdominal pain, diarrhea, constipation, nausea or vomiting. MUSCULOSKELETAL: Denies myalgias. NEUROLOGIC: Denies numbness, tingling, headacbe or weakness. ENDOCRINE: Denies fatigue, weight change, polydipsia or polyurina. GENITOURINARY: Denies burning, hematuria or urgency with micturation. HEMATOLOGIC: Denies history of anemia or bleeding. PHYSICAL EXAMINATION Blood pressure 125/80, heart rate 60, afebrile maintaining saturations on room air CONSTITUTIONAL: No apparent distress. HEENT: Head is normocephalic. Pupils are equal, round. Sclerae anicteric. Mucous membranes of the mouth are moist. No JVD. No carotid bruit. CHEST EXAMINATION: Lungs are clear to auscultation. No chest wall tenderness is noted on palpation or with deep breathing. HEART EXAMINATION: Regular rate and rhythm. S1, S2 heard. No murmurs, gallops or rub. ABDOMEN: Soft, nontender. Positive bowel sounds. EXTREMITIES: 2+ peripheral pulses, no lower extremity edema and no calf tenderness. NEUROLOGIC EXAMINATION: Patient is awake, alert and oriented x3. ASSESSMENT Chest pain, atypical acute coronary syndrome has been ruled out History of hypertension Marijuana use PLAN -An acute coronary event has been ruled out with no EKG evidence of ischemia and negative cardiac enzymes. -Obtain 2D echocardiogram and doppler study to assess cardiac structure and function. -Perform exercise stress test to assess for stress induced cardiac ischemia. If abnormal will consider coronary angiography. -Lipid Panel -If stress test is normal, ok to discharge from a cardiology perspective -Thank you kindly for this consultation. Nurse Practitioner note has been reviewed, I agree with a documented findings and plan of care. Patient was seen and examined. Nurse Practitioner note has been reviewed, I agree with a documented findings and plan of care. Patient was seen and examined. Past Medical History Past Medical History: Hypertension History of Any Multi-Drug Resistant Organisms: None Reported Past Surgical History: Appendectomy, Heart Catheterization, Hernia Repair Past Anesthesia/Blood Transfusion Reactions: No Reported Reaction Past Psychological History: No Psychological Hx Reported Smoking Status: Never smoker Past Alcohol Use History: Occasional Past Drug Use History: Marijuana - Past Family History Mother Family Medical History: No Reported History Medications and Allergies Home Medications Medication Instructions Recorded Confirmed Type Ascorbic Acid [Vitamin C] 500 mg PO BID 08/23/16 06/10/21 History Vit C/E/Zn/Coppr/Lutein/Zeaxan 1 tab PO BID 08/23/16 06/10/21 History [Preservision Areds 2 Softgel] Papaya [Papaya Enzyme] 1 tab PO DAILY 09/28/16 06/10/21 History Metoprolol Tartrate [Lopressor] 25 mg PO BID #60 tab 11/07/18 06/10/21 Rx Aloe Vera 2000mg 2,000 mg PO BID 06/10/21 06/10/21 History Aspirin EC [Ecotrin Low Dose] 81 mg PO DAILY 06/10/21 06/10/21 History Cholecalciferol (Vitamin D3) 125 mcg PO BID 06/10/21 06/10/21 History [Vitamin D3 (125 MCG = 5,000 IU)] Cyanocobalamin (Vitamin B-12) 5,000 mcg PO DAILY 06/10/21 06/10/21 History [Vitamin B-12] Liver Tonic 200 mg PO TID 06/10/21 06/10/21 History Milk Thistle 150 mg PO DAILY 06/10/21 06/10/21 History [place] Oil 15 ml PO DAILY 06/10/21 06/10/21 History Turmeric Root Extract [Turmeric] 500 mg PO BID 06/10/21 06/10/21 History Ubidecarenone [Co Q-10] 200 mg PO DAILY 06/10/21 06/10/21 History Vinegar 15 ml PO DAILY 06/10/21 06/10/21 History Zinc 50 mg PO DAILY 06/10/21 06/10/21 History hydroCHLOROthiazide [Hydrodiuril] 25 mg PO DAILY 06/10/21 06/10/21 History Allergies Allergy/AdvReac Type Severity Reaction Status Date / Time No Known Allergies Allergy Verified 06/10/21 11:43 Physical Exam Vitals: Vital Signs Temp Pulse Resp BP Pulse Ox 06/10/21 10:29 98.4 F 65 18 131/75 97 Intake and Output 06/09/21 06/10/21 06/10/21 22:59 06:59 14:59 Other: Weight 102.058 kg Results 06/10/21 11:40 06/10/21 11:40 Cardiac Enzymes 06/10/21 06/10/21 Range/Units 11:40 11:40 AST 29 (17-59) U/L Troponin I <0.012 (0.000-0.034) ng/mL Coagulation 06/10/21 Range/Units 11:40 PT 10.5 (9.0-12.0) sec APTT 24.1 (22.0-30.0) sec CBC 06/10/21 Range/Units 11:40 WBC 8.2 (3.8-10.6) k/uL RBC 5.39 (4.30-5.90) m/uL Hgb 15.7 (13.0-17.5) gm/dL Hct 48.1 (39.0-53.0) % Plt Count 208 (150-450) k/uL Comprehensive Metabolic Panel 06/10/21 Range/Units 11:40 Sodium 136 L (137-145) mmol/L Potassium 4.0 (3.5-5.1) mmol/L Chloride 104 (98-107) mmol/L Carbon Dioxide 23 (22-30) mmol/L BUN 18 (9-20) mg/dL Creatinine 0.83 (0.66-1.25) mg/dL Glucose 176 H (74-99) mg/dL Calcium 9.6 (8.4-10.2) mg/dL AST 29 (17-59) U/L ALT 44 (4-49) U/L Alkaline Phosphatase 65 (38-126) U/L Total Protein 7.3 (6.3-8.2) g/dL Albumin 4.1 (3.5-5.0) g/dL Current Medications Generic Name Dose Route Start Last Admin Trade Name Freq PRN Reason Stop Dose Admin Ascorbic Acid 500 mg 06/10/21 21:00 Ascorbic Acid 500 Mg Tab PO BID [facility] Aspirin 81 mg 06/11/21 09:00 Aspirin 81 Mg PO DAILY [facility] Cholecalciferol 125 mcg 06/10/21 21:00 Cholecalciferol 25 Mcg (1000 Iu) Tablet PO BID [facility] Hydrochlorothiazide 25 mg 06/11/21 09:00 Hydrochlorothiazide 25 Mg Tab PO DAILY [facility] Heparin Sodium/Sodium Chloride 250 mls @ 10.002 mls/hr 06/10/21 14:15 25,000 unit/ Sodium Chloride IV .Q24H [facility] Protocol 9.8 UNITS/KG/HR Sodium Chloride 1,000 mls @ 20 mls/hr 06/10/21 14:15 Saline 0.9% IV .Q24H [facility] Metoprolol Tartrate 25 mg 06/10/21 21:00 Metoprolol Tartrate 25 Mg Tab PO BID [facility] Multivitamins/Minerals 1 each 06/10/21 21:00 Vit A,C & I-Irzyth-Lmsowtod 1 Each Tab PO BID [facility] Nitroglycerin 0.4 mg 06/10/21 14:09 Nitroglycerin Sl Tabs 0.4 Mg Tab SUBLINGUAL Q5M PRN Chest Pain Nitroglycerin 1 inch 06/10/21 18:00 Nitroglycerin Oint 1 Inch/Gm Packet TOPICAL Q6HR [facility] Zinc Sulfate 220 mg 06/11/21 09:00 Zinc Sulfate 220 Mg Cap PO DAILY [facility] Intake and Output 06/09/21 06/10/21 06/10/21 22:59 06:59 14:59 Other: Weight 102.058 kg Patient Weight 06/11/21 06:59 Weight 102.058 kg 06/10/21 11:40 06/10/21 11:40
[2021-06-11] MEDS: METOPROLOL TARTRATE 25 MG TAB PO SCH (11:06)
--- NOTE | 2021-06-11 11:52 | ECHOF ---
Referral Reason:Chest pain with exertional dyspnea MEASUREMENTS -------- HEIGHT: 152.4 cm WEIGHT: 102.1 kg BP: RVIDd: 3.6 cm (< 3.3) IVSd: 1.0 cm (0.6 - 1.1) LVIDd: 3.6 cm (3.9 - 5.3) LVPWd: 0.8 cm (0.6 - 1.1) IVSs: 1.4 cm LVIDs: 2.6 cm LVPWs: 1.4 cm LA Diam: 3.5 cm (2.7 - 3.8) Ao Diam: 2.7 cm (2.0 - 3.7) AV Cusp: 1.9 cm (1.5 - 2.6) LA Diam: 4.0 cm (2.7 - 3.8) MV EXCURSION: 13.552 mm (> 18.000) MV EF SLOPE: 73 mm/s (70 - 150) EPSS: 0.3 cm MV E Dov: 0.41 m/s MV DecT: 201 ms MV A Dov: 0.74 m/s MV E/A Ratio: 0.56 RAP: 5.00 mmHg RVSP: 13.69 mmHg FINDINGS -------- Sinus rhythm. LV size, wall thickness and systolic function are normal, with an EF greater than 55%. The left maria de jesus tricular size is normal. The right ventricle is normal in size. The left atrial size is normal. The right atrial size is normal. xx ml of Lumason was utilized for enhancement of images. There is mild aortic valve sclerosis. There is no evidence of aortic regurgitation. Mild mitral regurgitation is present. Mild tricuspid regurgitation present. Right ventricular systolic pressure is normal at < 35 mmHg. The pulmonic valve was not well visualized. The aortic root size is normal. There is no pericardial effusion. CONCLUSIONS -------- 1. LV size, wall thickness and systolic function are normal, with an EF greater than 55%. 2. The left ventricular size is normal. 3. The right ventricle is normal in size. 4. The left atrial size is normal. 5. The right atrial size is normal. 6. xx ml of Lumason was utilized for enhancement of images. 7. There is mild aortic valve sclerosis. 8. Mild mitral regurgitation is present. 9. Mild tricuspid regurgitation present. 10. The pulmonic valve was not well visualized. 11. The aortic root size is normal. 12. There is no pericardial effusion. GRAVITY PROSPECTING OPERATOR: Eileen Wagner RDCS
[2021-06-11] MEDS ORDERED: ACETAMINOPHEN TAB 325 MG TAB PO PRN (12:51)
--- NOTE | 2021-06-11 13:39 | EST ---
EXERCISE STRESS DATE OF STUDY: 06/10/2021 AGE: 66 SEX: M HT: 5'10" WT: 225 lbs. PROTOCOL: Johnny STAGE: 3 DURATION OF EXERCISE: 8:41 HEART RATE REST: 72 BLOOD PRESSURE REST: 152/103 MAXIMUM HEART RATE ACHIEVED: 145 MAXIMUM BLOOD PRESSURE: 132 85% MPHR: 132 100% MPHR: 155 METS: 10.3 INDICATIONS: Chest pain. CLINICAL INFORMATION: STRESS DATA: Heart rate is 72. Pressure is 152/103 mmHg. Baseline EKG showed sinus mechanism. The patient exercised on the treadmill according to Johnny protocol for a total of 8 minutes and 41 seconds and achieved 10.3 METS. Max heart rate was 145, which is about 94% of maximum predicted heart rate. Maximum blood pressure was 210/97 mmHg. Clinically the patient reports no symptoms of chest pain or chest discomfort. The EKG did not show any significant ST or T-wave abnormalities concerning for ischemia. CONCLUSION: 1. Excellent exercise tolerance. 2. Excellent augmentation in the blood pressure and heart rate in response to exercise. 3. Normal EKG in response to exercise. 4. Essentially normal stress test for the patient. MMODL / IJN: [id number] /
[2021-06-11] MEDS: SODIUM CHLORIDE 0.9% 1,000 ML IV SCH (14:34)
[2021-06-11 15:44] LABS: Chol/HDL Ratio 5.13 Ratio; HDL Cholesterol 42.3 mg/dL (40.00-60.00); LDL Cholesterol,Calculated 128.1 mg/dL (0.0-131.0); VLDL Calculation 46.6 mg/dL (5.00-40.00)
--- NOTE | 2021-06-16 09:40 | P.DS ---
Providers Date of admission: 06/10/21 14:09 Expected date of discharge: 06/11/21 Attending physician: Virginia Bourgeois Consults: 06/10/21 14:09 Consult Physician Urgent Consulting Provider: Ezequiel Landry Consult Reason/Comments: Chest pain with exertional dyspnea Do you want consulting provider notified?: Yes Primary care physician: [facility] Hospital Course: Final diagnosis Unstable angina, ACS ruled out Chest pain and exertional dyspnea 1 x1/2-week. Hypertension Previous history of smoking DVT prophylaxis Discharge disposition Patient is being discharged in a stable condition with guarded prognosis to home. Patient will follow-up with [facility] in the outpatient setting upon discharge. Patient is to follow-up with cardiology outpatient as needed. Total time taken is greater than 35 minutes. Hospital course Patient is a 66-year-old male with a known history of hypertension, marijuana use and prior history of smoking and also previous history of cardiac catheterization presents to ER with complaints of chest pain and exertional dyspnea. Patient states that she has been having on and off exertional dyspnea for the past 1/2-week and chest pains lasting about few minutes. He also feels very weak and fatigued and lack of energy. Chest pain is associated e with shortness of breath. No radiation of the pain. Left retrosternal 5 out of 10 in severity.. Any palpitations or leg swelling.. Patient called his primary care physician who recommended him go to ER for evaluation. Patient denies any complaints of nausea or vomiting or diaphoresis. No recent illnesses or sick contacts. Chest x-ray showed no acute cardiopulmonary process. EKG showed normal sinus rhythm Laboratory showed D-dimer 0.34, sodium 136 potassium 4.0 chloride 104 BUN 18 and creatinine 0.83 Troponin x3 - and proBNP is not elevated at 36. Coronavirus PCR not detected WBC 8.2 hemoglobin 15.7 and platelets 208 06/11/2021 Patient is seen and evaluated and follow-up status post stress test which was negative and patient has been cleared by cardiology and will follow-up with cardiology in the outpatient setting. Patient underwent 2-D echo showing systolic function normal with an EF greater than 55% with some mild mitral and tricuspid regurgitation present. Patient to continue on current medication regimen. Patient also encouraged to follow-up with primary care provider out of [facility] on discharge. Currently no reports of chest pain, shortness of breath, or palpitations. Patient is afebrile. No reports of nausea or vomiting and patient is tolerating diet. Patient will be discharged home today. Guarded prognosis. Patient is sitting up in the bed comfortably, no acute distress, awake alert and oriented.. HEENT: Normocephalic. Neck is supple. Pupils reactive. Nostrils clear. Oral cavity is moist. Neck reveals no JVD, carotid bruits, or thyromegaly. CHEST EXAMINATION: Trachea is central. Symmetrical expansion. Lung schneider clear to auscultation and percussion. CARDIAC: Normal S1, S2 with no gallops. No murmurs ABDOMEN: Soft. Bowel sounds normal. No organomegaly. No abdominal bruits. Extremities: reveal no edema. No clubbing or cyanosis Neurologically awake, alert, oriented x3 with well-coordinated movements. No focal deficits noted Skin: No rash or skin lesions. Psychiatric: Cooperative. Non-suicidal Musculoskeletal: No joint swelling or deformity. Normal range of motion. Please refer to medication reconciliation sheet for a list of medications. Patient Condition at Discharge: Fair Plan - Discharge Summary Discharge Rx Participant: Yes New Discharge Prescriptions: New Acetaminophen Tab [Tylenol] 650 mg PO Q6HR PRN tab PRN Reason: Fever And/ Or Pain Nitroglycerin Sl Tabs [Nitrostat] 0.4 mg SUBLINGUAL Q5M PRN #30 tab PRN Reason: Chest Pain Continue Vit C/E/Zn/Coppr/Lutein/Zeaxan [Preservision Areds 2 Softgel] 1 tab PO BID Ascorbic Acid [Vitamin C] 500 mg PO BID Papaya [Papaya Enzyme] 1 tab PO DAILY Metoprolol Tartrate [Lopressor] 25 mg PO BID #60 tab Vinegar 15 ml PO DAILY Ubidecarenone [Co Q-10] 200 mg PO DAILY Cyanocobalamin (Vitamin B-12) [Vitamin B-12] 5,000 mcg PO DAILY Turmeric Root Extract [Turmeric] 500 mg PO BID hydroCHLOROthiazide [Hydrodiuril] 25 mg PO DAILY Aloe Vera 2000mg 2,000 mg PO BID Milk Thistle 150 mg PO DAILY Cholecalciferol (Vitamin D3) [Vitamin D3 (125 MCG = 5,000 IU)] 125 mcg PO BID Zinc 50 mg PO DAILY Aspirin EC [Ecotrin Low Dose] 81 mg PO DAILY [place] Oil 15 ml PO DAILY Liver Tonic 200 mg PO TID Discharge Medication List Ascorbic Acid [Vitamin C] 500 mg PO BID 08/23/16 [History] Vit C/E/Zn/Coppr/Lutein/Zeaxan [Preservision Areds 2 Softgel] 1 tab PO BID 08/23/16 [History] Papaya [Papaya Enzyme] 1 tab PO DAILY 09/28/16 [History] Metoprolol Tartrate [Lopressor] 25 mg PO BID #60 tab 11/07/18 [Rx] Aloe Vera 2000mg 2,000 mg PO BID 06/10/21 [History] Aspirin EC [Ecotrin Low Dose] 81 mg PO DAILY 06/10/21 [History] Cholecalciferol (Vitamin D3) [Vitamin D3 (125 MCG = 5,000 IU)] 125 mcg PO BID 06/10/21 [History] Cyanocobalamin (Vitamin B-12) [Vitamin B-12] 5,000 mcg PO DAILY 06/10/21 [History] Liver Tonic 200 mg PO TID 06/10/21 [History] Milk Thistle 150 mg PO DAILY 06/10/21 [History] [place] Oil 15 ml PO DAILY 06/10/21 [History] Turmeric Root Extract [Turmeric] 500 mg PO BID 06/10/21 [History] Ubidecarenone [Co Q-10] 200 mg PO DAILY 06/10/21 [History] Vinegar 15 ml PO DAILY 06/10/21 [History] Zinc 50 mg PO DAILY 06/10/21 [History] hydroCHLOROthiazide [Hydrodiuril] 25 mg PO DAILY 06/10/21 [History] Acetaminophen Tab [Tylenol] 650 mg PO Q6HR PRN tab 06/11/21 [Rx] Nitroglycerin Sl Tabs [Nitrostat] 0.4 mg SUBLINGUAL Q5M PRN #30 tab 06/11/21 [Rx] Follow up Appointment(s)/Referral(s): [facility],Clinic [Primary Care Provider] - 1-2 days Activity/Diet/Wound Care/Special Instructions: Activity Limited until follow-up follow up with primary care provider on discharge Follow-up with cardiology outpatient Continue heart healthy diet Continue taking medications as prescribed Discharge Disposition: HOME SELF-CARE
== END 2021-06-11 14:44 | disposition home or self-care (01) ==
LOC: EC 10:26 → 6NMEDSUR 14:09
PROVIDERS: ADMIT Internal Medicine; ATTEND Internal Medicine
DX: I20.0 Unstable angina (principal); I10 Essential (primary) hypertension; F12.90 Cannabis use, unspecified, uncomplicated; Z20.822 Contact with and (suspected) exposure to COVID-19; E66.9 Obesity, unspecified; Z68.32 Body mass index [BMI] 32.0-32.9, adult; Z79.82 Long term (current) use of aspirin; Z79.899 Other long term (current) drug therapy; Z87.891 Personal history of nicotine dependence; Z90.49 Acquired absence of other specified parts of digestive tract
CPT/HCPCS: 99285; 96376; 96366 ×2; 96365; 96375; 36415; 93005; 93017; 93306; 85379; 83880; 80061; 80053; 83690; 83735; 84484; 85025; 85610; 85730 ×2; 87635; 71046; G0378 ×2; J1644 ×3; Q9950